=== PATIENT | female | born 1960 | race American Indian/Alaskan Native ===

== ENCOUNTER 2016-12-28 10:26 | Emergency (ER) | payer SELFPAY ==
[2016-12-28] MEDS ORDERED: BENADRYL PO ONE (13:35)
[2016-12-28] MEDS ORDERED: KEFLEX PO ONE (13:35)
[2016-12-28] MEDS ORDERED: MOTRIN PO ONE (13:35)
[2016-12-28 13:50] VITALS: BP 146/76
--- NOTE | 2016-12-28 17:06 | Emergency Department Report ---
Entered by SKIP CARR, acting as scribe for EHSAN MAYBERRY PA. - General Chief complaint: Skin/Abscess/Foreign Body Stated complaint: SWOLLEN FINGER Time Seen by Provider: 12/28/16 13:17 Source: patient Mode of arrival: Ambulatory Limitations: No Limitations - History of Present Illness Initial comments: 56 y/o female with a PMHx of asthma, CVA, diabetes mellitus, SD, and HTN presents to the ED c/o a burning insect bite to her left index finger that began 1 week ago. Patient states she doesn't know what bit her. Reports associated left index finger pain and swelling, but she denies fever, chills, sore throat, chest pain, SOB, nausea, vomiting, and rash. Applied warm compresses with some relief. Allergic to sulfa. complaint: insect bite/sting Onset/Timin -: week(s) Tetanus Up to Date: unsure Location: L hand Severity: moderate Severity scale (0 -10): 5 Quality: burning Consistency: constant Improves with: immobilization Worsens with: palpation, movement Context: none Associated symptoms: other (left index finger pain and swelling) Treatments Prior to Arrival: other (warm compresses) - Related Data Previous Rx's Medication Instructions Recorded Last Taken Type Cephalexin [Keflex] 500 mg PO Q12HR #10 cap 12/28/16 Unknown Rx Ibuprofen [Motrin] 800 mg PO Q8HR PRN #30 tablet 12/28/16 Unknown Rx diphenhydrAMINE [Benadryl CAP] 25 mg PO QHS PRN #24 capsule 12/28/16 Unknown Rx Allergies Allergy/AdvReac Type Severity Reaction Status Date / Time Sulfa (Sulfonamide AdvReac Unknown Verified 12/28/16 10:37 Antibiotics) Abscess Boil HPI - HPI Chief Complaint: Skin/Abscess/Foreign Body Stated Complaint: SWOLLEN FINGER Time Seen by Provider: 12/28/16 13:17 Duration: 1 Week Location: Upper Extremity (left index finger) Severity: Moderate History: Yes Pain (affected area on left index finger), Yes Insect Bite ( unknown insect), No Fever, No Purulent Drainage, No Numbness, No Foreign Body, No Previous History Home Medications: Previous Rx's Medication Instructions Recorded Last Taken Type Cephalexin [Keflex] 500 mg PO Q12HR #10 cap 12/28/16 Unknown Rx Ibuprofen [Motrin] 800 mg PO Q8HR PRN #30 tablet 12/28/16 Unknown Rx diphenhydrAMINE [Benadryl CAP] 25 mg PO QHS PRN #24 capsule 12/28/16 Unknown Rx Allergies/Adverse Reactions: Allergies Allergy/AdvReac Type Severity Reaction Status Date / Time Sulfa (Sulfonamide AdvReac Unknown Verified 12/28/16 10:37 Antibiotics) ED Review of Systems Comment: All other systems reviewed and negative Constitutional: denies: chills, fever Eyes: denies: eye pain, eye discharge, vision change ENT: denies: ear pain, throat pain Respiratory: denies: cough, orthopnea, shortness of breath, SOB with exertion, SOB at rest, stridor, wheezing Cardiovascular: denies: chest pain, palpitations, dyspnea on exertion, orthopnea , edema, syncope Endocrine: no symptoms reported Gastrointestinal: denies: abdominal pain, nausea, vomiting, diarrhea Musculoskeletal: joint swelling (left index finger), myalgia (left index finger pain). denies: back pain, arthralgia Skin: other (insect bite on left index finger with associated pain and swelling) . denies: rash, lesions Neurological: denies: headache, weakness, numbness, paresthesias Hematological/Lymphatic: denies: easy bleeding, easy bruising ED Past Medical Hx - Past Medical History Previous Medical History?: Yes Hx Hypertension: Yes Hx CVA: Yes Hx Heart Attack/AMI: Yes Hx Diabetes: Yes Hx Asthma: Yes - Surgical History Past Surgical History?: Yes Hx Appendectomy: Yes Additional Surgical History: tubal, partial histerectomy - Social History Smoking Status: Current Every Day Smoker Substance Use Type: Alcohol - Medications Home Medications: Home Medications Medication Instructions Recorded Confirmed Last Taken Type Cephalexin [Keflex] 500 mg PO Q12HR #10 cap 12/28/16 Unknown Rx Ibuprofen [Motrin] 800 mg PO Q8HR PRN #30 tablet 12/28/16 Unknown Rx diphenhydrAMINE [Benadryl CAP] 25 mg PO QHS PRN #24 capsule 12/28/16 Unknown Rx ED Physical Exam - General Limitations: No Limitations General appearance: alert, in no apparent distress - Head Head exam: Present: atraumatic, normocephalic - Eye Eye exam: Present: normal appearance, PERRL, EOMI Pupils: Present: normal accommodation - ENT ENT exam: Present: normal exam, mucous membranes moist, normal external ear exam - Neck Neck exam: Present: normal inspection, full ROM. Absent: tenderness, meningismus, lymphadenopathy - Respiratory Respiratory exam: Present: normal lung sounds bilaterally. Absent: respiratory distress, wheezes, rales, rhonchi, stridor, accessory muscle use, decreased breath sounds - Cardiovascular Cardiovascular Exam: Present: regular rate, normal rhythm, normal heart sounds. Absent: systolic murmur, diastolic murmur, rubs, gallop - GI/Abdominal GI/Abdominal exam: Present: soft, normal bowel sounds. Absent: distended - Extremities Exam Extremities exam: Present: full ROM, tenderness (slightly tender left index finger), normal capillary refill, joint swelling (mildly swollen left index finger). Absent: pedal edema, calf tenderness - Expanded Upper Extremity Exam Left General: Present: normal inspection. Absent: laceration, abrasion, nail injury (#), foreign body, amputation, avulsion Shoulder Exam: Present: normal inspection, full ROM Upper Arm exam: Present: normal inspection, full ROM Elbow exam: Present: normal inspection, full ROM Forearm Wrist exam: Present: normal inspection, full ROM Hand Wrist exam: Present: full ROM, tenderness (slightly tender left index finger), swelling (mildly swollen index finger), other (mild cellulitis and mild erythema surrounding bit carmina on left index finger). Absent: abrasion, laceration, ecchymosis, deformity, crepidus, dislocation, erythema, amputation, nail avulsion, subungual hematoma Neurosensory exam: Present: 2-point discrimination, radial nerve intact Vascular: Present: normal capillary refill, radial pulse (2+). Absent: vascular compromise, Pallo, pulse deficit radial art - Back Exam Back exam: Present: normal inspection, full ROM - Neurological Exam Neurological exam: Present: alert, oriented X3, normal gait - Psychiatric Psychiatric exam: Present: normal affect, normal mood - Skin Skin exam: Present: warm, dry, intact. Absent: rash ED Course Vital Signs 12/28/16 12/28/16 10:33 13:49 Temperature 98 F Pulse Rate 85 77 Respiratory 18 20 Rate Blood Pressure 161/89 Blood Pressure 146/76 [Right] O2 Sat by Pulse 96 94 Oximetry ED Medical Decision Making - Medical Decision Making 56 year-old female presents with an insect bite on left index finger for 1 week ED course: Patient received 1 dose of antibiotics and 1 dose of Benadryl. Discussed the patient antibiotics and anti-inflammatory medication as prescribed. Discussed with patient to apply warm compresses to affected area. Discussed the patient to follow instructions as given and follow-up with primary care physician. Discuss her symptoms return or worsen to return to the ED Vital signs are normal patient is in no acute distress ED Disposition Clinical Impression: Insect bite Qualifiers: Encounter type: initial encounter Qualified Code(s): W57.XXXA - Bitten or stung by nonvenomous insect and other nonvenomous arthropods, initial encounter Nonvenomous insect bite of finger without infection Qualifiers: Encounter type: initial encounter Qualified Code(s): S60.469A - Insect bite ( nonvenomous) of unspecified finger, initial encounter; W57.XXXA - Bitten or stung by nonvenomous insect and other nonvenomous arthropods, initial encounter Disposition: DC- TO HOME OR SELFCARE Is pt being admited?: No Does the pt Need Aspirin: No Condition: Stable Instructions: Insect Bite or Sting (ED) Prescriptions: diphenhydrAMINE [Benadryl CAP] 25 mg PO QHS PRN #24 capsule PRN Reason: Allergic Reaction Cephalexin [Keflex] 500 mg PO Q12HR #10 cap Ibuprofen [Motrin] 800 mg PO Q8HR PRN #30 tablet PRN Reason: Pain Referrals: PRIMARY CARE,MD [Primary Care Provider] - 3-5 Days [facility] [Outside] - 3-5 Days [facility] [Outside] - 3-5 Days [facility] [Outside] - 3-5 Days Forms: Accompanied Note, Work/School Release Form(ED) Time of Disposition: 13:54 This documentation as recorded by the LILLY leon JASMINE,accurately reflects the service I personally performed and the decisions made by SHAWANDA branch OYINLOLA A, PA.
== END 2016-12-28 14:13 | disposition home or self-care (01) ==
LOC: ED 10:26
DX: S60.461A Insect bite (nonvenomous) of left index finger, initial encounter (principal); I10 Essential (primary) hypertension; I25.2 Old myocardial infarction; E11.9 Type 2 diabetes mellitus without complications; J45.909 Unspecified asthma, uncomplicated; F17.200 Nicotine dependence, unspecified, uncomplicated; Z88.2 Allergy status to sulfonamides; Z86.73 Personal history of transient ischemic attack (TIA), and cerebral infarction without residual deficits; W57.XXXA Bitten or stung by nonvenomous insect and other nonvenomous arthropods, initial encounter; Y93.89 Activity, other specified; Y99.9 Unspecified external cause status; Y92.89 Other specified places as the place of occurrence of the external cause
CPT/HCPCS: 99282

== ENCOUNTER 2018-11-01 17:01 | Emergency (ER) | payer SELFPAY ==
--- NOTE | 2018-11-01 17:20 | Emergency Department Report ---
Blank Doc - Documentation Documentation: This is a 58-year-old female that presents with chest pain and SOB. This initial assessment/diagnostic orders/clinical plan/treatment(s) is/are subject to change based on patient's health status, clinical progression and re- assessment by fellow clinical providers in the ED. Further treatment and workup at subsequent clinical providers discretion. Patient/guardians urged not to elope from the ED as their condition may be serious if not clinically assessed and managed. Initial orders include: 1- Patient sent to [facility] for further evaluation and treatment 2- labs 3- EKG 4- CXR
[2018-11-01] MEDS ORDERED: SOLU-Medrol IV ONE (18:17)
[2018-11-01] MEDS ORDERED: DUONEB *Not for PRN Use IH ONE (18:18)
--- NOTE | 2018-11-01 18:29 | XRay Report ---
PROCEDURE: XR CHEST ROUTINE 2V TECHNIQUE: PA and lateral chest radiographs were obtained. HISTORY: Chest Pain COMPARISONS: None. FINDINGS: Heart: Normal. Mediastinum/Vessels: Normal. Lungs/Pleural space: Normal. Bony thorax: No acute osseous abnormality. IMPRESSION: No radiographic evidence of acute cardiopulmonary disease. This document is electronically signed by Syd Coleman MD., November 01 2018 07:27:48 PM ET
[2018-11-01 18:54] LABS: Basophils # (Auto) 0.1 K/mm3 (0.0-0.1); Basophils % (Auto) 1.1 % (0.0-1.8); Eosinophils # (Auto) 0.1 K/mm3 (0.0-0.4); Eosinophils % (Auto) 0.9 % (0.0-4.3); Hemoglobin 15.4 gm/dl (10.1-14.3); Lymphocytes % (Auto) 24.1 % (13.4-35.0); Mean Corpuscular HGB Conc 34 % (30-34); Mean Corpuscular Volume 93 fl (79-97); Monocytes % (Auto) 8.1 % (0.0-7.3); Platelet Count 228 K/mm3 (140-440); Red Blood Count 4.96 M/mm3 (3.65-5.03); Red Cell Distribution Width 14.6 % (13.2-15.2)
[2018-11-01 19:04] LABS: Partial Thromboplastin Time 49.8 Sec. (24.2-36.6)
[2018-11-01 19:09] LABS: BUN/Creatinine Ratio 33; Blood Urea Nitrogen 20 mg/dL (7-17); Calcium 9.5 mg/dL (8.4-10.2); Hemolysis Index 25
[2018-11-01] MEDS ORDERED: ZOFRAN ONE (19:35)
[2018-11-01] MEDS ORDERED: ZOFRAN IV ONE (19:43)
[2018-11-01] MEDS ORDERED: TORADOL IV ONE (21:23)
[2018-11-01] MEDS ORDERED: PROVENTIL IH ONE (21:23)
[2018-11-01] MEDS ORDERED: LIDOCAINE VISCOUS 2% PO ONE (21:23)
[2018-11-01] MEDS ORDERED: PEPCID IV ONE (21:23)
--- NOTE | 2018-11-01 21:24 | Emergency Department Report ---
ED General Adult HPI - General Chief complaint: Dyspnea/Respdistress Stated complaint: FEDE/CHEST PAIN Time Seen by Provider: 11/01/18 17:19 Source: patient, RN notes reviewed Mode of arrival: Ambulatory Limitations: No Limitations - History of Present Illness Initial comments: This is a 58-year-old female. The patient is not known to this provider prev iously. She does not have a local primary care doctor. She has a history of diabetes and possible hypertension. The patient presents to the emergency room with a complaint of facial fullness, cough, congestion, sore throat, chest tightness. Cough, congestion, sore throat present for the past 2-3 weeks. They're constant. No relief with [id number] medications. Chest tightness has started approximately 8 hours ago. It does not radiate to the back, arms and neck. There is no vomiting. There is no diaphoresis. There is no recent aspirin consumption. No DVT or pulmonary embolus risk factors. The patient endorses mild headache, sinus headache, no ocular pain or discharge, body aches, back discomfort, no abdominal pain, and no urinary symptoms. -: hour(s), week(s) Location: head, face, mouth, chest Radiation: non-radiation Severity scale (0 -10): 0 Quality: aching Consistency: other (chest wall pain increases with palpation.) Improves with: other (as per history of present illness) Worsens with: other - Related Data Previous Rx's Medication Instructions Recorded Last Taken Type Ibuprofen [Motrin] 800 mg PO Q8HR PRN #30 tablet 12/28/16 Unknown Rx cephALEXin [Keflex] 500 mg PO Q12HR #10 cap 12/28/16 Unknown Rx diphenhydrAMINE [Benadryl CAP] 25 mg PO QHS PRN #24 capsule 12/28/16 Unknown Rx Albuterol Sulfate [Proair 90 mcg IH Q4HR PRN #2 aer.pow.ba 11/01/18 Unknown Rx Respiclick] Benzonatate [Tessalon Perles] 100 mg PO Q8HR PRN #30 capsule 11/01/18 Unknown Rx Cetirizine HCl [Cetirizine 10mg 10 mg PO QDAY #30 tab.chew 11/01/18 Unknown Rx chew] Fluticasone [Flonase] 1 spray NS QDAY #1 bottle 11/01/18 Unknown Rx Ibuprofen [Motrin] 600 mg PO Q8H PRN #30 tablet 11/01/18 Unknown Rx Allergies Allergy/AdvReac Type Severity Reaction Status Date / Time Sulfa (Sulfonamide AdvReac Unknown Verified 12/28/16 10:37 Antibiotics) ED Review of Systems ROS: Stated complaint: FEDE/CHEST PAIN Other details as noted in HPI Constitutional: malaise. denies: fever ENT: congestion Respiratory: cough Cardiovascular: chest pain Gastrointestinal: denies: abdominal pain, nausea Genitourinary: denies: urgency Musculoskeletal: arthralgia, myalgia Skin: denies: lesions Neurological: weakness Psychiatric: anxiety ED Past Medical Hx - Past Medical History Previous Medical History?: Yes Hx Hypertension: Yes Hx CVA: Yes Hx Heart Attack/AMI: Yes Hx Diabetes: Yes Hx Asthma: Yes - Surgical History Hx Appendectomy: Yes Additional Surgical History: tubal, partial histerectomy - Social History Smoking Status: Current Every Day Smoker Substance Use Type: None - Medications Home Medications: Home Medications Medication Instructions Recorded Confirmed Last Taken Type Ibuprofen [Motrin] 800 mg PO Q8HR PRN #30 tablet 12/28/16 Unknown Rx cephALEXin [Keflex] 500 mg PO Q12HR #10 cap 12/28/16 Unknown Rx diphenhydrAMINE [Benadryl CAP] 25 mg PO QHS PRN #24 capsule 12/28/16 Unknown Rx Albuterol Sulfate [Proair 90 mcg IH Q4HR PRN #2 aer.pow.ba 11/01/18 Unknown Rx Respiclick] Benzonatate [Tessalon Perles] 100 mg PO Q8HR PRN #30 capsule 11/01/18 Unknown Rx Cetirizine HCl [Cetirizine 10mg 10 mg PO QDAY #30 tab.chew 11/01/18 Unknown Rx chew] Fluticasone [Flonase] 1 spray NS QDAY #1 bottle 11/01/18 Unknown Rx Ibuprofen [Motrin] 600 mg PO Q8H PRN #30 tablet 11/01/18 Unknown Rx ED Physical Exam - General Limitations: No Limitations General appearance: alert, in no apparent distress, obese - Head Head exam: Present: atraumatic, normocephalic - Eye Eye exam: Present: normal appearance, EOMI. Absent: nystagmus - ENT ENT exam: Present: normal exam, normal orophraynx, mucous membranes moist, normal external ear exam - Neck Neck exam: Present: normal inspection, full ROM. Absent: tenderness, meningismus - Respiratory Respiratory exam: Present: chest wall tenderness, decreased breath sounds. Absent: wheezes, rales, stridor - Cardiovascular Cardiovascular Exam: Present: regular rate, normal rhythm, normal heart sounds. Absent: bradycardia, tachycardia, irregular rhythm, systolic murmur, diastolic murmur, rubs, gallop - GI/Abdominal GI/Abdominal exam: Present: soft. Absent: distended, tenderness, guarding, rebound, rigid, pulsatile mass - Extremities Exam Extremities exam: Present: normal inspection, full ROM, other (2+ pulses noted in the bilateral upper, lower extremities. Compartments soft. No long bony tenderness. The pelvis is stable.). Absent: pedal edema, joint swelling, calf tenderness - Back Exam Back exam: Present: normal inspection, full ROM. Absent: tenderness, CVA tenderness (R), CVA tenderness (L), paraspinal tenderness, vertebral tenderness - Neurological Exam Neurological exam: Present: alert, oriented X3, other (Extraocular movements intact. Tongue midline. No facial droop. Facial sensation intact to light touch in the V1, V2, V3 distribution bilaterally. 5 and 5 strength in 4 extremities.. Sensation is intact to light touch in 4 extremities.). Absent: motor sensory deficit - Psychiatric Psychiatric exam: Present: normal affect, normal mood - Skin Skin exam: Present: warm, dry, intact, normal color. Absent: rash ED Course Vital Signs 11/01/18 11/01/18 11/01/18 17:19 17:51 19:45 Temperature 98.6 F 98.8 F Pulse Rate 92 H 89 74 Pulse Rate [ Bilateral] Respiratory 16 20 23 Rate Respiratory Rate [Bilateral ] Blood Pressure 179/99 Blood Pressure 168/130 153/96 [Right] O2 Sat by Pulse 100 97 99 Oximetry 11/01/18 11/01/18 21:20 21:52 Temperature Pulse Rate 81 Pulse Rate [ 78 Bilateral] Respiratory 17 Rate Respiratory 20 Rate [Bilateral ] Blood Pressure Blood Pressure 170/74 [Right] O2 Sat by Pulse 100 Oximetry - Reevaluation(s) Reevaluation #1: 11/01/18 22:18 Differential diagnosis, including but not limited to: Costochondritis, laryngitis, bronchitis, sinusitis, seasonal allergies, GERD, gastritis Assessment and plan: 58-year-old female, no pulmonary embolus or DVT risk factors, low risk by well's criteria, low risk by heart score, low risk by Centor score, with 3 weeks of laryngitis, bronchitis, and approximately 8-12 hours of costochondritis. Troponin negative 2. EKG essentially unchanged 2. Her age and vascular risk profile are reviewed and appreciated, however, given the reproducible nature of her pain, and multiple symptoms, I think it is unlikely the patient is having a coexisting acute coronary syndrome, in conjunction with her laryngitis, bronchitis. Her symptoms were treated supportively and appropriately. She will be started on appropriate outpatient medications for her symptoms, and she is strongly encouraged to follow up with an outpatient primary care doctor or inspector [place]. Of note, the local cardiology groups at this hospital are typically very happy and willing to see patients closely as an outpatient follow-up. The patient is therefore encouraged to closely follow up with outpatient cardiology to complete an outpatient risk stratification. ED Medical Decision Making - Lab Data Result diagrams: 11/01/18 18:38 11/01/18 18:38 Vital Signs 11/01/18 11/01/18 11/01/18 17:19 17:51 19:45 Temperature 98.6 F 98.8 F Pulse Rate 92 H 89 74 Pulse Rate [ Bilateral] Respiratory 16 20 23 Rate Respiratory Rate [Bilateral ] Blood Pressure 179/99 Blood Pressure 168/130 153/96 [Right] O2 Sat by Pulse 100 97 99 Oximetry 11/01/18 11/01/18 21:20 21:52 Temperature Pulse Rate 81 Pulse Rate [ 78 Bilateral] Respiratory 17 Rate Respiratory 20 Rate [Bilateral ] Blood Pressure Blood Pressure 170/74 [Right] O2 Sat by Pulse 100 Oximetry Lab Results 11/01/18 11/01/18 11/01/18 Range/Units 18:38 18:38 18:38 WBC 12.3 H (4.5-11.0) K/mm3 RBC 4.96 (3.65-5.03) M/mm3 Hgb 15.4 H (10.1-14.3) gm/dl Hct 46.0 H (30.3-42.9) % MCV 93 (79-97) fl MCH 31 (28-32) pg MCHC 34 (30-34) % RDW 14.6 (13.2-15.2) % Plt Count 228 (140-440) K/mm3 Lymph % (Auto) 24.1 (13.4-35.0) % Rabun % (Auto) 8.1 H (0.0-7.3) % Eos % (Auto) 0.9 (0.0-4.3) % Baso % (Auto) 1.1 (0.0-1.8) % Lymph # 3.0 (1.2-5.4) K/mm3 Rabun # 1.0 H (0.0-0.8) K/mm3 Eos # 0.1 (0.0-0.4) K/mm3 Baso # 0.1 (0.0-0.1) K/mm3 Seg Neutrophils % 65.8 (40.0-70.0) % Seg Neutrophils # 8.1 H (1.8-7.7) K/mm3 PT 13.8 (12.2-14.9) Sec. INR 1.00 (0.87-1.13) APTT 49.8 H (24.2-36.6) Sec. Sodium 140 (137-145) mmol/L Potassium 4.3 (3.6-5.0) mmol/L Chloride 100.5 (98-107) mmol/L Carbon Dioxide 26 (22-30) mmol/L Anion Gap 18 mmol/L BUN 20 H (7-17) mg/dL Creatinine 0.6 L (0.7-1.2) mg/dL Estimated GFR > 60 ml/min BUN/Creatinine Ratio 33 % Glucose 133 H (65-100) mg/dL Calcium 9.5 (8.4-10.2) mg/dL Troponin T < 0.010 (0.00-0.029) ng/mL 11/01/18 Range/Units 20:44 WBC (4.5-11.0) K/mm3 RBC (3.65-5.03) M/mm3 Hgb (10.1-14.3) gm/dl Hct (30.3-42.9) % MCV (79-97) fl MCH (28-32) pg MCHC (30-34) % RDW (13.2-15.2) % Plt Count (140-440) K/mm3 Lymph % (Auto) (13.4-35.0) % Rabun % (Auto) (0.0-7.3) % Eos % (Auto) (0.0-4.3) % Baso % (Auto) (0.0-1.8) % Lymph # (1.2-5.4) K/mm3 Rabun # (0.0-0.8) K/mm3 Eos # (0.0-0.4) K/mm3 Baso # (0.0-0.1) K/mm3 Seg Neutrophils % (40.0-70.0) % Seg Neutrophils # (1.8-7.7) K/mm3 PT (12.2-14.9) Sec. INR (0.87-1.13) APTT (24.2-36.6) Sec. Sodium (137-145) mmol/L Potassium (3.6-5.0) mmol/L Chloride (98-107) mmol/L Carbon Dioxide (22-30) mmol/L Anion Gap mmol/L BUN (7-17) mg/dL Creatinine (0.7-1.2) mg/dL Estimated GFR ml/min BUN/Creatinine Ratio % Glucose (65-100) mg/dL Calcium (8.4-10.2) mg/dL Troponin T < 0.010 (0.00-0.029) ng/mL - EKG Data -: EKG Interpreted by [place] EKG shows normal: sinus rhythm Rate: normal - EKG Data 11/01/18 22:20 EKG #1 shows a normal sinus rhythm, 91 bpm, left ventricular hypertrophy, borderline left axis deviation, left anterior fascicular block, motion artifact, abnormal EKG, not consistent with ST elevation myocardial infarction. EKG #2 appears to be unchanged when compared to prior. - Radiology Data Radiology results: report reviewed, image reviewed X-ray of the chest is negative for acute disease Critical care attestation.: If time is entered above; I have spent that time in minutes in the direct care of this critically ill patient, excluding procedure time. ED Disposition Clinical Impression: Bronchitis, Laryngitis, Chest wall pain Disposition: - TO HOME OR SELFCARE Is pt being admited?: No Does the pt Need Aspirin: No Condition: Stable Instructions: Chest Pain (ED), Acute Bronchitis (ED), Costochondritis (ED) Additional Instructions: Take the medications as needed/directed. Follow up with a inspector [place] or primary care doctor for chest wall pain within the next 3-5 days. Follow up with a primary care doctor for bronchitis, laryngitis within the next 3-6 weeks. Patient's with bronchitis and laryngitis may typically have symptoms from anywhere for 3-6 weeks. In addition, allergies may be contributing to the patient's symptoms. Please note the patient was found to have elevated blood pressure and possible hypertension in the emergency room. This should be followed up by a primary care doctor or inspector [place] within the recommended timeframe. Patient may attempt weight loss, physical activity and aerobic activity as tolerated, and modifying diet, to include fibers, vegetables, lean meats and proteins, and avoidance of simple carbohydrates, sugars, and fried and/or fatty foods. Hypertension should be followed up as recommended, as well as long-term complications of hypertension May include stroke, heart attack, disability,, loss of quality of life. Please return to the emergency room right away with new, worsened or different symptoms, or symptoms not present on the initial emergency room evaluation. Local cardiology group's include [facility], [facility]. Local primary care offices include [facility]. Referrals: DEEPTHI FARIAS MD [Primary Care Provider] - 3-5 Days [facility] [Provider Group] - 3-5 Days [facility] [Provider Group] - 3-5 Days [facility] [Provider Group] - 3-5 Days
[2018-11-01 23:26] VITALS: BP 162/81
== END 2018-11-01 23:25 | disposition home or self-care (01) ==
LOC: ED 17:01
DX: J40 Bronchitis, not specified as acute or chronic (principal); J04.0 Acute laryngitis; I10 Essential (primary) hypertension; I25.2 Old myocardial infarction; E11.9 Type 2 diabetes mellitus without complications; F17.200 Nicotine dependence, unspecified, uncomplicated; Z86.73 Personal history of transient ischemic attack (TIA), and cerebral infarction without residual deficits; Z90.89 Acquired absence of other organs; Z90.711 Acquired absence of uterus with remaining cervical stump; Z88.2 Allergy status to sulfonamides
CPT/HCPCS: 36415; 71046; 80048; 84484; 85025; 85610; 85730; 93005; 93010; 94644; 96374; 96375; 99284; J1885; J2405; J2930